=== PATIENT | male | born 1965 | race Caucasian/White ===

== ENCOUNTER 2025-03-12 10:16 | Outpatient (CLI) | payer MEDICARE, OTHER, SELFPAY ==
--- NOTE | ~2025-03-12 | XR_ITS ---
Lumbosacral Spine: AP and lateral views Clinical History: Pain Findings: The normal lordotic curve is maintained. No fracture evident. There is grade 1 retrolisthes is of L2 over L3. There is severe facet arthropathy L4-L5 and L5-S1. There is moderate facet arthropa thy at L3-L4. There are mild degenerative disc changes. The sacroiliac joints are normally outlined. Impression: Moderate degenerative spondylosis of the lower lumbar spine, as above. Grade 1 retrolisthesis of L2 over L3. Reviewed, dictated and finalized at location M. Impression: Moderate degenerative spondylosis of the lower lumbar spine, as above. Grade 1 retrolisthesis of L2 over L3.
--- NOTE | ~2025-03-12 | XR_ITS ---
Cervical Spine: AP, lateral, open-mouth views Clinical History: Pain Findings: The normal lordotic curve is maintained. No fracture identified. There is minimal grade 1 r etrolisthesis of C5 over C6. There is advanced degenerative disc narrowing at C5-C6. There is mild to moderate degenerative disc change at C6-C7. There is mild facet arthropathy.. Pre-vertebral soft tis sues are unremarkable. Impression: Moderate degenerative spondylosis at C5-C6, as above. Mild degenerative changes otherwise. Reviewed, dictated and finalized at location . Impression: Moderate degenerative spondylosis at C5-C6, as above. Mild degenerative changes otherwise.
== END 2025-03-12 10:17 | disposition home or self-care (01) ==
DX: M99.03 Segmental and somatic dysfunction of lumbar region (principal); M47.26 Other spondylosis with radiculopathy, lumbar region
CPT/HCPCS: 72040; 72100